=== PATIENT | male | born 1985 | race Caucasian/White ===

== ENCOUNTER 2019-01-01 19:17 | Emergency (ER) | payer OTHER ==
--- NOTE | 2019-01-01 19:23 | PDOC ---
Rapid Medical Evaluation Time Seen by Provider: 01/01/19 19:20 Medical Evaluation: Allergies Allergy/AdvReac Type Severity Reaction Status Date / Time No Known Allergies Allergy Verified 03/30/14 23:05 01/01/19 19:20 I performed a brief in-person evaluation of this patient. Chief complaint: Vomiting, diarrhea, chest pain Pertinent physical exam findings: Moderate distress secondary to pain. Left CVA tenderness, diffuse abdominal tenderness. I have ordered the following: EKG, basic labs, UA culture Patient will proceed to the ED for further evaluation. Discharge Disposition - Diagnosis Abdominal pain - Referrals - Patient Instructions - Post Discharge Activity
[2019-01-01 19:24] VITALS: BMI 27.3
[2019-01-01] MEDS ORDERED: SODIUM CHLORIDE 0.9% 500 ML INFUS.BAG IV ONE (19:43)
[2019-01-01] MEDS ORDERED: ONDANSETRON 4 MG/2 ML VIAL IVPUSH ONE (20:01)
[2019-01-01 20:05] LABS: BASO % 0.8 % (0-2.0); EOS % 0.3 % (0-4.5); HEMATOCRIT 42.7 % (35.4-49); HEMOGLOBIN 14.9 GM/dL (11.7-16.9); LYMPH % 3.3 % (8-40); MCH 30.2 pg (25.7-33.7); MCHC 34.9 g/dl (32.0-35.9); MEAN CELL VOLUME 86.4 fl (80-96); MEAN PLT VOLUME 10.4 fl (7.5-11.1); MONO % 2.8 % (3.8-10.2); NEUT % 92.8 % (42.8-82.8); PLATELET COUNT 225 K/MM3 (134-434); RBC 4.94 M/mm3 (4.00-5.60); RDW 14.2 % (11.9-15.9); WHITE BLOOD COUNT 17.1 K/mm3 (4.0-10.0)
[2019-01-01] MEDS ORDERED: morphine CARPU-JECT 4 MG/1 ML DISP.SYRIN IVPUSH ONE (20:13)
[2019-01-01] MEDS ORDERED: morphine SULFATE 4 MG/ML VIAL ONE (20:17)
[2019-01-01] MEDS ORDERED: ONDANSETRON 4 MG/2 ML VIAL ONE (20:17)
--- NOTE | 2019-01-01 20:20 | PDOC ---
History of Present Illness - General Chief Complaint: Pain Stated Complaint: CHEST PAINS,COLD SYMPTOMS Time Seen by Provider: 01/01/19 19:20 History Source: Patient - History of Present Illness Initial Comments: 01/01/19 20:13 33-year-old male complaining of nausea vomiting diarrhea and abdominal pain since this morning since afternoon patient has been having chest pain radiating to the back. Patient reports that he is having difficulty breathing. Partner and kids similar gastroenteritis symptoms however symptoms has resolved. patient with worsening symptoms. + chills, afberile at home. last week with flu like symptoms chest xray negative. vaccine are up to date. + flu vaccine. History: inguinal hernia repair Past History - Past Medical History Allergies/Adverse Reactions: Allergies Allergy/AdvReac Type Severity Reaction Status Date / Time No Known Allergies Allergy Verified 03/30/14 23:05 Cardiac Disorders: Yes (HEART MURMUR) COPD: No DVT: No Diabetes: No Dialysis: No GI Disorders: No HTN: No - Surgical History Abdominal Surgery: Yes (HERNIA inguinal) Cholecystectomy: No Gastric Stapling: No GI Surgery: No - Immunization History Immunization Up to Date: Yes - Suicide/Smoking/Psychosocial Hx Smoking History: Never smoked Information on smoking cessation initiated: No Hx Alcohol Use: No Drug/Substance Use Hx: No Review of Systems - Review of Systems Able to Perform ROS?: Yes Is the patient limited B[place]ian proficient: No Constitutional: Yes: Chills, Fever Cardiac (ROS): Yes: Chest Pain ABD/GI: Yes: Diarrhea, Nausea, Vomiting, Abdominal cramping : No: Symptoms Reported, See HPI, Burning, Dysuria, Discharge, Frequency, Flank Pain, Hematuria, Incontinence, Pain, Urgency, Testicular Mass, Testicular Swelling, Lesions, Testicular Pain, Other Musculoskeletal: No: Symptoms Reported, See HPI, Back Pain, Gout, Joint Pain, Joint Swelling, Muscle Pain, Muscle Weakness, Neck Pain, Joint Stiffness, Other Integumentary: No: Symptoms Reported, See HPI, Bruising, Change in Color, Change in Hair/Nails, Dryness, Erythema, Flushing, Lesions, Lumps, Pallor, Pruritus, Rash, Sweating, Other Neurological: No: Symptoms reported, See HPI, Headache, Numbness, Paresthesia, Pre-Existing Deficit, Seizure, Tingling, Tremors, Weakness, Unsteady Gait, Ataxia, Dizziness, Other *Physical Exam - Vital Signs Last Vital Signs Temp Pulse Resp BP Pulse Ox 99.3 F 104 H 20 128/57 L 98 01/01/19 19:22 01/01/19 19:22 01/01/19 19:22 01/01/19 19:22 01/01/19 19:22 - Physical Exam General Appearance: Yes: Mild Distress Respiratory/Chest: positive: Lungs Clear, Normal Breath Sounds Cardiovascular: positive: Tachycardia Gastrointestinal/Abdominal: positive: Increased Bowel Sounds, Guarding, Rebound , Tenderness, Other (RUQ tenderness) Musculoskeletal: positive: Normal Inspection Extremity: positive: Normal Capillary Refill, Normal Range of Motion Integumentary: positive: Dry, Warm, Pale Neurologic: positive: Fully Oriented, Alert Moderate Sedation - Procedure Monitoring Vital Signs: Procedure Monitoring Vital Signs Temperature 99.3 F 01/01/19 19:22 Pulse Rate 104 H 01/01/19 19:22 Respiratory Rate 20 01/01/19 19:22 Blood Pressure 128/57 L 01/01/19 19:22 O2 Sat by Pulse Oximetry (%) 98 01/01/19 19:22 ED Treatment Course - LABORATORY CBC & Chemistry Diagram: 01/01/19 19:51 01/01/19 19:31 - ADDITIONAL ORDERS Additional order review: 01/01/19 19:51 RBC 4.94 MCV 86.4 MCHC 34.9 RDW 14.2 MPV 10.4 Neutrophils % 92.8 H D Lymphocytes % 3.3 L D Monocytes % 2.8 L Eosinophils % 0.3 D Basophils % 0.8 - RADIOLOGY Radiology Studies Ordered: Category Date Time Status CHEST PA & LAT [RAD] Stat Radiology 01/01/19 19:55 Ordered ABDOMEN US -LIMITED [US] Stat Ultrasound 01/01/19 19:56 Ordered Progress Note - Progress Note Progress Note: r/o sepsis; chest pain, abdominal pain P: cbc cmp lipase d-dimer lactic acid] blood culture ua urine culture Medical Decision Making - Medical Decision Making 01/02/19 00:02 CTA chestNo evidence of mediastinal hematoma. No evidence of a thoracic aortic aneurysm or dissection. No enlarged mediastinal or hilar adenopathy or masses noted. Study negative for pulmonary embolism. No pleural or pericardial effusion noted. No lung nodules, masses or infiltrates present. No evidence of pneumothorax. Intrathoracic airway normal in appearance. Visualized portion of the enhanced solid organs of the upper abdomen unremarkable. Visualized portion of the adrenal glands unremarkable. 01/02/19 00:02 patient feels better. will PO challenge. 01/02/19 00:52 patient is tolerating water. no vomiting no abdominal pain. will d/c home to follow up with PCP. 01/02/19 01:51 patient no with right sided abdominal pain. febrile 101.7. FLu test pending. likely need CTAP considering leukocytosis 01/02/19 03:34 CTAP: normal appendix. normal. patient is now feeling better. will d/c home/. *DC/Admit/Observation/Transfer Diagnosis at time of Disposition: Nausea and vomiting in adult patient, Gastroenteritis Abdominal pain Qualifiers: Abdominal location: upper abdomen, unspecified Qualified Code(s): R10.10 - Upper abdominal pain, unspecified Chest pain Qualifiers: Chest pain type: other chest pain Qualified Code(s): R07.89 - Other chest pain - Discharge Dispostion Disposition: HOME Condition at time of disposition: Improved - Referrals Referrals: Ave Perrin MD [Primary Care Provider] - - Patient Instructions Printed Discharge Instructions: DI for Abdominal Pain-Adult Additional Instructions: Drink plenty of fluids. Start a brat diet (bananas, rice, apples, toast) Follow-up with your doctor in 1-2 days. Return to the emergency room if symptoms worsen - Post Discharge Activity Forms/Work/School Notes: Back to Work
[2019-01-01 20:36] LABS: ALK PHOS 103 U/L (45-117); ANION GAP 7 MMOL/L (8-16); BILIRUBIN,TOTAL 1.5 mg/dL (0.2-1); BLOOD UREA NITROGEN 20 mg/dL (7-18); CALCIUM 9.3 mg/dL (8.5-10.1); CHLORIDE 103 mmol/L (98-107); CO2 28 mmol/L (21-32); CREATININE 1.3 mg/dL (0.55-1.3); GLUCOSE,RANDOM 129 mg/dL (74-106); LIPASE 91 U/L (73-393); POTASSIUM 3.9 mmol/L (3.5-5.1); SGOT/AST 25 U/L (15-37); SGPT/ALT 45 U/L (13-61); SODIUM 138 mmol/L (136-145); TOT PROT 8.5 g/dl (6.4-8.2)
[2019-01-01 20:38] LABS: URINE APPEARANCE CLEAR; URINE BILIRUBIN NEGATIVE (<2.0 mg/dL); URINE COLOR YELLOW; URINE GLUCOSE (UA) NEGATIVE (NEGATIVE); URINE KETONE 1+ (NEGATIVE); URINE LEUK ESTERASE NEGATIVE (NEGATIVE); URINE NITRITE NEGATIVE (NEGATIVE); URINE PROTEIN NEGATIVE (NEGATIVE); URINE UROBILINOGEN NEGATIVE mg/dL (0.2-1.0)
[2019-01-01 20:43] LABS: EPI CELLS RARE /HPF (FEW); URINE BACTERIA RARE /hpf (NONE SEEN); URINE MUCUS RARE
[2019-01-01 20:49] LABS: INR 1.02 (0.83-1.09)
[2019-01-01 20:51] LABS: ACTIVATED PTT 30.2 SECONDS (25.2-36.5)
[2019-01-01] MEDS ORDERED: SODIUM CHLORIDE 1,000 ML IV STA (21:16)
[2019-01-01 21:38] LABS: PLATELET ESTIMATE ADEQUATE
[2019-01-02] MEDS ORDERED: ACETAMINOPHEN 325 MG TABLET (FP) PO ONE (00:04)
[2019-01-02] MEDS ORDERED: ACETAMINOPHEN 325 MG TABLET (FP) ONE (00:50)
[2019-01-02 04:08] VITALS: BP 100/60; PULSE 86; TEMP 99.8
--- NOTE | 2019-01-02 11:54 | EKG ---
Test Reason : Blood Pressure : / mmHG Vent. Rate : 087 BPM Atrial Rate : 087 BPM P-R Int : 176 ms QRS Dur : 116 ms QT Int : 362 ms P-R-T Axes : 054 102 050 degrees QTc Int : 435 ms NORMAL SINUS RHYTHM POSSIBLE LEFT ATRIAL ENLARGEMENT INCOMPLETE RIGHT BUNDLE BRANCH BLOCK POSSIBLE RIGHT VENTRICULAR HYPERTROPHY ABNORMAL ECG NO PREVIOUS ECGS AVAILABLE Confirmed by MD KARYN, KENYATTA ([id number]) on 01/02/2019 11:53:44 AM Referred By: Confirmed By:KENYATTA BOSS MD
== END 2019-01-02 04:34 | disposition home or self-care (01) ==
LOC: JER 19:17
PROC: 3E0337Z Introduction of Electrolytic and Water Balance Substance into Peripheral Vein, Percutaneous Approach (ICD-10-PCS; principal; 2019-01-01)
PROC: 3E033NZ Introduction of Analgesics, Hypnotics, Sedatives into Peripheral Vein, Percutaneous Approach (ICD-10-PCS; 2019-01-01)
DX: K52.9 Noninfective gastroenteritis and colitis, unspecified (principal); R07.89 Other chest pain
CPT/HCPCS: 36415; 71046-TC-FY; 71275-TC; 74176-TC; 76705-TC; 80053; 81003; 81015; 83605; 83690; 84484; 85025; 85379; 85610; 85730; 87040; 87086; 87804; 93005; 93010; 99282-25; J7030